=== PATIENT | male | born 1980 | race Caucasian/White ===

== ENCOUNTER → 2018-04-12 | Outpatient (CLI) | payer OTHER ==
--- NOTE | 2018-04-12 10:42 | RAD ---
Limited abdominal ultrasound, 04/12/2018: HISTORY: Pain The area of clinical concern in the left lower quadrant was carefully scanned. The abdominal wall is unremarkable. No underlying mass or unusual fluid collection is seen. CT scanning is suggested for further evaluation, if clinically indicated. Electronically signed by: Cade Soria MD (04/12/2018 10:40 AM) [facility]
== END | disposition home or self-care (01) ==
LOC: US 09:00
PROVIDERS: ATTEND Registered Nurse
DX: R10.32 Left lower quadrant pain (principal)
CPT/HCPCS: 76705

== ENCOUNTER → 2018-05-03 | Outpatient (CLI) | payer OTHER ==
[~2018-05-03] MED LIST: IOHEXOL 240 MG/ML 50ML VIAL. PO ONE; IOHEXOL 300 MG/ML 75 ML VIAL. IV ONE
--- NOTE | 2018-05-03 13:16 | RAD ---
CT abdomen pelvis with contrast dated 05/03/2018. No comparison available. CLINICAL INDICATION: Left lower quadrant pain. TECHNIQUE: Per contiguous axial imaging of the abdomen and pelvis performed after the administration of 75 cc Omnipaque 300. One or more of the following individualized dose reduction techniques were utilized for this examination: 1. Automated exposure control 2. Adjustment of the mA and/or kV according to patient size 3. Use of iterative reconstruction technique. FINDINGS: Limited images of lung bases are clear. Heart size within normal limits. No pleural or pericardial effusion. Liver, spleen, pancreas, adrenal glands, gallbladder and kidneys are unremarkable. No hydronephrosis. There is a well-defined low-density focus at the anterior right lobe liver near the hepatic dome that measures 6 mm in size, too small to accurately characterize. Partially opacified GI tract is normal in caliber and contour. No focal bowel wall thickening. Scattered diverticula within the colon. No paracolonic inflammatory changes. The appendix is normal in caliber. No ascites or lymphadenopathy. Abdominal aorta normal in caliber. Images of pelvis show nondistended urinary bladder. Prostate gland normal in size. No free pelvic fluid or pelvic lymphadenopathy. Bone windows show no acute findings. IMPRESSION: 1. No acute abnormality of abdomen or pelvis. Normal appendix. 2. Diverticulosis with no evidence of acute diverticulitis. 3. Small low-density focus at the hepatic dome, indeterminate and likely too small to adequately characterize. Electronically signed by: Peng Hodge MD (05/03/2018 1:13 PM) [id number]
== END | disposition home or self-care (01) ==
LOC: CT 08:35
PROVIDERS: ATTEND Registered Nurse
DX: K57.30 Diverticulosis of large intestine without perforation or abscess without bleeding (principal)
CPT/HCPCS: 74177; Q9967

== ENCOUNTER → 2018-06-03 | Outpatient (CLI) | payer OTHER ==
--- NOTE | 2018-06-03 13:35 | RAD ---
Chest radiograph 06/03/2018 9:50 AM INDICATION: Chronic chest pain COMPARISON: None available TECHNIQUE: Frontal and lateral views of the chest are provided. FINDINGS: The cardiomediastinal silhouette is within normal limits. There are no pleural effusions. There is no pulmonary vascular congestion. There is no pneumothorax. The lungs are clear. No significant osseous abnormality is identified. IMPRESSION: No acute cardiopulmonary process. Electronically signed by: Lachelle Lovelace MD (06/03/2018 1:31 PM) [id number]
== END | disposition home or self-care (01) ==
LOC: PMG 09:40
PROVIDERS: ATTEND Registered Nurse
DX: R07.9 Chest pain, unspecified (principal); G89.29 Other chronic pain
CPT/HCPCS: 71046